=== PATIENT | female | born 1960 | race Caucasian/White ===

== ENCOUNTER → 2017-05-23 | Outpatient (CLI) | payer BC | LOC: COL.PUL 04-26 10:00 | DX: R06.02 Shortness of breath (principal); Z87.891 Personal history of nicotine dependence | CPT/HCPCS: J7674 ==

== ENCOUNTER 2020-10-06 08:03 | Outpatient (CLI) | payer BC ==
[~2020-10-06] VITALS: Ht 165.1 cm; Wt 113.0 kg
[2020-10-06] VITALS (12 sets, daily range): BP systolic 111–145; BP diastolic 68–89; PULSE 66–92; TEMP 97.7
[~2020-10-06 08:03] MED LIST: 00186-0370-20 IH; CALCIUM 600MG+D1 TAB PO; FLONASEALLERGY NS; FLOVENT 110MCG7.9 GM IH; MULTIPLE VITAMI1 TA5 PO; NATURAL E400 IU PO; PRIL40 PO; PROAIR HFA0.09 MG/AC IH; SYNTHROID0.125 MG/T PO; VITAMIN C500 MG PO; VITAMIND3 5000 PO; XANAX XR0.5 MG PO; ZESTORETIC 12.51 TAB PO; ZOCOR 40MG40 MG PO
--- NOTE | 2020-10-06 10:10 | NUR ---
REPORTED TO DELILAH BUCHANAN AT 1001. PT TOP HAVE A CXR AT 1050.
--- NOTE | 2020-10-06 12:04 | NUR ---
PATIENT POST LUNG BIOPSY. VSS. BIOPSY SITE CLEAN AND DRY. NO SIGNS OF INFECTION NOTED. GAVE POST PROCEDURE PATIENT TEACHING AND VISIT REPORT. PATIENT WITH NO QUESTIONS OR CONCERNS AT TIME OF DISCHARGE. ESCORTED OUT TO PRIVATE VEHICLE VIA WHEELCHAIR.
== END 2020-10-06 12:00 | disposition home or self-care (01) ==
LOC: COL.RAD 08:03
DX: C34.00 Malignant neoplasm of unspecified main bronchus (principal)

== ENCOUNTER 2021-08-17 09:23 | Outpatient (CLI) | payer BC ==
[2021-08-17] VITALS (15 sets, daily range): BP systolic 106–155; BP diastolic 61–990; PULSE 62–94; TEMP 98.1
[~2021-08-17] VITALS: Ht 165.1 cm; Wt 114.3 kg
--- NOTE | 2021-08-17 13:30 | NUR ---
Discharge instructions given to pt.Pt verbalizes understanding.Pt escorted out by this nurse.
== END 2021-08-17 14:02 ==
LOC: COL.RAD 09:23
DX: C34.12 Malignant neoplasm of upper lobe, left bronchus or lung (principal); I10 Essential (primary) hypertension; Z95.9 Presence of cardiac and vascular implant and graft, unspecified
CPT/HCPCS: J1644

== ENCOUNTER → 2021-11-05 | Outpatient (CLI) | payer BC, OTHER | LOC: COL.VAS 14:24 | DX: R06.02 Shortness of breath (principal) ==

== ENCOUNTER → 2024-07-04 | Outpatient (CLI) | payer BC, OTHER ==
[~2024-07-04] VITALS: Ht 165.1 cm; Wt 118.6 kg
[~2024-07-04] MED LIST changes: +COZAAR 50MG50 MG/TAB PO; +LR 1,000 ML IV SCH; +Midazolam 2 MG/2 ML VIAL ONE; +TRELEGY ELLIPT1 EAC1 IH; +ZYRTEC 10MG10 MG PO
[2024-07-04 08:12] VITALS: BP 137/91; PULSE 79; TEMP 97.5
[2024-07-04 09:20] VITALS: BP 131/80; PULSE 77
--- NOTE | 2024-07-04 10:37 | NUR ---
0940--PATIENT HAS COMPLETED HER RECOVERY PERIOD WITHOUT ANY ISSUES. PATIENT IS AWAKE AND ALERT. PATIENT HAS HAD SOME WATER AND DECLINED ANY FOOD. PATIENT GOT DRESSED AND IV WAS REMOVED WITHOUT ANY ISSUE. WRITTEN D/C INSTRUCTIONS GIVEN TO PATIENT AND REVIEWED AND PATIENT IS ABLE TO TEACH BACK. PATIENT DECLINED USE OF WHEELCHAIR. ESCORTED PATIENT OUT TO HER RIDE WITH ALL OF HER PERSONAL ITEMS AND PATIENT WAS ABLE TO GET IN FRONT PASSENGER SEAT WITHOUT ANY ISSUES. ALL NEEDS MET.
== END ==
LOC: COL.RAD 07:38
DX: M51.16 Intervertebral disc disorders with radiculopathy, lumbar region (principal); M48.061 Spinal stenosis, lumbar region without neurogenic claudication
CPT/HCPCS: J2250; J2704